=== PATIENT | female | born 1995 | race Caucasian/White ===

== ENCOUNTER 2022-07-30 21:43 | Inpatient (IN) | payer OTHER, SELFPAY ==
--- NOTE | 2022-07-30 21:43 | LDADM ---
This patient, Sofia Suarez, was admitted to Labor/Delivery/Recovery 106 on 07/30/22 at 21:43. Plans for labor, pain management and were discussed with patient. Patient/family oriented to hospital policies and general routines including ID bracelet, bed and alarms, visiting hours, pain management, procedures, bathroom and other care routines, personal items, smoking policy, room service/diet and guest tray routines, infant security routines, and visiting hours. Patient/Family are encouraged to report perceived risks to care and to ask questions if they do not understand what they are told or what they should do. See OBIX for further documentation.
[2022-07-30 23:05] VITALS: RESP 16; TEMP 36.8
[2022-07-30 23:24] VITALS: BMI 28.2
[2022-07-30] MEDS: LACTATED RINGERS 1,000 ML 125 ML IV CONT ×2 (23:25→23:47)
[2022-07-30] MEDS: fentaNYL CITRATE INJ (*CRX) 100 MCG/2 ML VIAL 50 MCG IV PUSH (23:31)
[2022-07-30 23:33] LABS: Basophils Percent Auto 0.3 % (0.2-1.2); Eosinophils Percent Auto 0.2 % (0-4.4); Hematocrit 37.4 % (37.0-47.0); Hemoglobin 12.4 g/dL (12.0-15.0); Immature Granulocyte Absolute 0.04 K/mm3 (0.00-0.031); Immature Granulocyte Percent A 0.4 % (0-0.5); Lymphocytes Absolute Auto 3.22 K/mm3 (0.9-3.2); Lymphocytes Percent Auto 29.9 % (18.3-44.2); Mean Corpuscular HGB Conc 33.2 g/dl (32-36); Mean Corpuscular Hemoglobin 29.8 pg (26-34); Mean Corpuscular Volume 89.9 fl (80-100); Mean Platelet Volume 10.8 fl (7.4-10.4); Monocytes Absolute Auto 0.7 K/mm3 (0.1-0.6); Monocytes Percent Auto 6.8 % (2.6-8.5); Neutrophils Absolute Auto 6.7 K/mm3 (1.3-6.7); Neutrophils Percent Auto 62.4 % (45.5-73.1); Platelet Count Result 241 k/mm3 (150-375); Red Blood Count 4.16 M/mm3 (4.2-5.4); White Blood Count 10.8 K/mm3 (4.5-10.0)
[2022-07-30 23:50] VITALS: PULSE 80; O2SAT 97
--- NOTE | 2022-07-30 23:51 | P.PNAN_ITS ---
Anes - Eval Pre Procedure Procedure: Labor epidural Date/Time: 07/30/22 23:51 Surgeon: Taylor Preop Diagnosis: Abd pain with contractions Pre Op Diagnosis: Contractions Patient Data Age: 26 Gender: F Height: 1.65 m Weight: 77 kg Last Vital Signs Pulse Ox 97 07/30/22 23:50 O2 Del Method Room Air 07/30/22 23:24 Allergies Allergy/AdvReac Type Severity Reaction Status Date / Time amoxicillin Allergy Hives Verified 07/30/22 23:28 Penicillins Allergy Hives Verified 07/30/22 23:28 Home Medications Medication Instructions Recorded Confirmed Type aspirin 81 mg tablet 81 mg PO DAILY 07/20/22 07/30/22 History ferrous sulfate 140 mg (45 mg 140 mg PO DAILY 07/20/22 07/30/22 History iron) tablet,extended release prenat.vits,donna,qfr-pexq-brtbt 1 tablet PO DAILY 07/20/22 07/30/22 History Laboratory Tests 07/30/22 07/30/22 23:20 23:20 WBC 10.8 K/mm3 H K/mm3 (4.5-10.0) RBC 4.16 M/mm3 L M/mm3 (4.2-5.4) Hgb 12.4 g/dL g/dL (12.0-15.0) Hct 37.4 % % (37.0-47.0) MCV 89.9 fl fl (80-100) MCH 29.8 pg pg (26-34) MCHC 33.2 g/dl g/dl (32-36) RDW 15.0 % H % (11.5-14.5) Plt Count 241 k/mm3 k/mm3 (150-375) MPV 10.8 fl H fl (7.4-10.4) Immature Gran % (Auto) 0.4 % % (0-0.5) Neut % (Auto) 62.4 % % (45.5-73.1) Lymph % (Auto) 29.9 % % (18.3-44.2) [place] % (Auto) 6.8 % % (2.6-8.5) Eos % (Auto) 0.2 % % (0-4.4) Baso % (Auto) 0.3 % % (0.2-1.2) Lymph # (Auto) 3.22 K/mm3 H K/mm3 (0.9-3.2) [place] # (Auto) 0.7 K/mm3 H K/mm3 (0.1-0.6) Eos # (Auto) 0.0 K/mm3 K/mm3 (0-0.3) Baso # (Auto) 0.0 K/mm3 K/mm3 (0.0-0.1) Abs Immat Gran (auto) 0.04 K/mm3 H K/mm3 (0.00-0.031) Absolute Neuts (auto) 6.7 K/mm3 K/mm3 (1.3-6.7) Absolute Nucleated RBC 0.0 K/mm3 K/mm3 (0.0-0.012) Nucleated RBC % 0.0 % % (0.0-0.2) RPR Pending Patient hx anesthesia problems: none Family hx anesthesia problems: none Results Review: All pre-operative results and documents have been reviewed as part of the pre- operative evaluation. [facility] Past Medical History Medical History Anxiety Overweight (BMI 25.0-29.9) and not yet delivered Social History Social History Smoking status: Former smoker Tobacco type: cigarettes and e-cigarettes/vaping Substance use: never Spiritual care concerns: No Exam Day of Procedure 07/30/22 23:51 Patient weight: overweight Airway: Mallampati scale class II
[2022-07-30 23:53] VITALS: BP 117/79; PULSE 58
[2022-07-30 23:55] VITALS: PULSE 77; O2SAT 100
[2022-07-31] VITALS (66 sets, daily range): BP systolic 93–135; BP diastolic 54–101; PULSE 60–127; RESP 16–18; TEMP 36.6–37.3; O2SAT 96–100
[2022-07-31] MEDS: OXYTOCIN 30 UNITS/NS 500 ML 30 UNITS/500 ML BAG 999 UNITS (06:03)
--- NOTE | 2022-07-31 06:14 | PM.OBPRVD ---
OB - Delivery Note Procedure Delivery date: 07/31/22 Procedure: Induction method: None Delivery monitor: External FHT and External Uterine Route of delivery: Laceration Description: Perineal - 2nd Degree Delivery repair: vicryl Specimen: No Quantitative Blood Loss (ml): 200 Anesthesia type: Epidural [place] Baby Date of : 07/31/22 Time of : 05:59 Weeks of gestation at delivery: 39 Weight (pounds): 7 Weight (ounces): 11 score five minutes: 8 score ten minutes: 9
[2022-07-31 06:27] LABS: Rapid Plasma Reagin Non-Reactive (NonReactive)
[2022-07-31] MEDS: IBUPROFEN 600 MG TABLET PO ×2 (11:28→17:51)
[2022-07-31] MEDS: MULTIVIT/MIN/PREN/FOL AC/IRON TABLET 1 TAB PO (11:28)
--- NOTE | 2022-07-31 12:23 | PC.NURSE ---
0835-Patient transferred to post room #282 via wheelchair. Support person present. Oriented to unit, room, information board, rooming in, admission packet and security measures. Patient verbalizes understanding.
--- NOTE | 2022-07-31 13:56 | PC.NURSE ---
1225 Introductions were made, then consulted with patient to assess needs related to . RN encouraged skin to skin to prepare infant for . Mother led the conversation with her?plans to feed?her and made a decision to pump and feed her infant so everyone else can feed the baby . Resources provided for inpatient and outpatient services using a resource guide and mom/baby guide. Mother voiced understanding of information and will call if there is a request for assistance. Reported to primary RN. [phone] Breast pump provided due to mother's decision to feed her pumped breast milk. Instructions given on cleaning, care, usage, that there should be no pain, pumping schedule for milk production, collection, and storage of human milk. Parents are encouraged to record pumping schedule on the feeding sheet. Patient was assessed for correct placement, flange size, to pump for comfort and nipple stretching/stimulation for adequate milk production every 3 hours (8 times in 24 hours) 1-2 times at night. Mother voiced understanding of the education shared along with mom and baby guide for additional resource information. Reported to the primary RN. [phone] - Mother called for RN to collect the human milk for feeding her . Infant was syringe fed 3mls while sucking on a gloved finger. 10mls of human milk will be stored for the next feeding and pumping session. Reported to primary RN.
[2022-07-31] MEDS: DOCUSATE SODIUM 100 MG CAPSULE PO (17:51)
[2022-08-01 04:45] VITALS: BP 112/66; PULSE 58; RESP 18; TEMP 36.7; O2SAT 96
[2022-08-01 06:20] LABS: Hematocrit 32.2 % (37.0-47.0); Hemoglobin 10.5 g/dL (12.0-15.0)
--- NOTE | 2022-08-01 07:03 | P.PNOB_ITS ---
OB - PN: Subj Subjective Date/time seen: 08/01/22 07:03 Patient comments: no complaints and pain well controlled baby status: doing well and nursing well [place] feeding status: exclusively breast feeding OB - PN: Obj Data Labs CBC & Chem 7: 08/01/22 05:36 Labs: Laboratory Results - last 24 hr 08/01/22 05:36 Hgb 10.5 L Hct 32.2 L OB - PN A/P Assessment and Plan (1) , delivered: Code(s): O80 - Encounter for full-term uncomplicated delivery Status: Acute Plan day: 1 Plan: routine care and discharge home Comments: doing very well. dc instructions given. Time Spent With Patient Time: Total time spent is greater than 50% in coordination of care (as documented) at patient's floor/unit and/or counseling patient: Time with patient: less than 15 minutes Exam Narrative: NAD abdomen soft, nontender, fundus firm below the umbilicus Extremities nontender, 1+ edema
--- NOTE | 2022-08-01 07:08 | P.DS_ITS ---
DS: Admitting Diagnosis Discharge Date 08/01/22 Admitting Diagnosis labor at term DS: Discharge Diagnosis Discharge Diagnosis (1) , delivered: Code(s): O80 - Encounter for full-term uncomplicated delivery Status: Acute OB - DS: Summary Hospital Course Hospital Course: Sofia was admitted in labor at term. She proceeded to have an uncomplicated vaginal delivery and course. OB Procedures : Ultrasound OB Procedures Intrapartum: Spontaneous Vag Delivery OB Procedures: : None Peripartum Data Delivery Method: Natural Vaginal complications: none Status at Discharge Functional status at discharge: independent ambulation Time Spent with Patient Time attestation: Total time spent providing and/or coordinating discharge services: Exam Narrative: NAD abdomen soft, appropriately tender Ext non tender, 1+ edema DS: Data Data Completed and Pending Labs on day of discharge: Labs from last 24 hours 08/01/22 05:36 Hgb 10.5 L Hct 32.2 L Discharge Plan Discharge Attending physician on discharge: Argenis Vazquez Discharging Clinician: Argenis Vazquez Anticipated Discharge Date/Time: 08/01/22 07:06 Patient Disposition: Home, Self-Care Activity: pelvic rest Diet: regular Patient Instructions: Antibiotic Form Stand Alone Forms: General Discharge Information Follow-up/Referrals: Argenis Vazquez MD [Physician] - 4 Weeks Discharge Medications: Continued #2 Tablet 1 tablet PO DAILY ferrous sulfate 140 mg (45 mg iron) Tablet Extended Release 140 mg PO DAILY Discontinued Adult Low Dose Aspirin 81 mg Tablet 81 mg PO DAILY Date of admission: 07/30/22 21:43 Primary Care Provider: PHYSICIAN,INNOVATION MANAGER Admitting Provider: Argenis Vazquez Attending physician on admission: Argenis Vazquez Condition: Stable
[2022-08-01 08:20] VITALS: BP 118/75; PULSE 76; RESP 16; TEMP 36.8; O2SAT 100
--- NOTE | 2022-08-01 08:37 | WPDANLDPN2 ---
Anes-Prog Note L&D Date/Time: 08/01/22 08:30 Comfortable throughout: labor and delivery Neuraxial method: epidural Epidural/Spinal procedure site: clean & non-tender Neuro status: Neuro function grossly intact. Cardiovascular status: normal Respiratory status: normal Airway patency: baseline Mental status: baseline Post-Op hydration status: normal Vital Signs: Last Vital Signs Temp 98.0 F 08/01/22 04:45 Pulse 58 L 08/01/22 04:45 Resp 18 08/01/22 04:45 BP 112/66 08/01/22 04:45 Pulse Ox 96 08/01/22 04:45 O2 Del Method Room Air 07/31/22 19:30 Pain score (VAS): 0 Post-procedural complaints: none Patient feedback: Patient satisfied with anesthetic care.
--- NOTE | 2022-08-01 11:41 | PC.NURSE ---
[id number] Follow up consult to answer any questions the parents may have with pumping and feeding her . Reminded parents to use good handwashing technique to prevent infection. Mother is feeding appropriately for growth of and understands stimulating infant to eat if needed. Infant has had adequate feedings in the last 24 hours meets the outcomes for weight (4.48%), output (plenty) and jaundice (appropriate for hours of age not requiring medical intervention) at this time. Mother states she is confident to continue pumping her breast to feed her at home or when to call for assistance and denies any additional assistance or education at this time. Reinforced understanding of milk production, transition of milk, signs of adequate intake, prevention/relief of engorgement, responsive after visualizing feeding cues, the different methods of stimulating to feed 2-2.5 hours after the start of the last feeding, community resources, medication information reviewed per [facility] and when to call a provider using the resource of the mom and baby guide/[facility] website. Mother voiced understanding of the education shared and has a follow up appt tomorrow 08/02 at 0800. Reported to the primary RN.
[2022-08-02 07:53] VITALS: BP 116/83; PULSE 66; RESP 20; TEMP 37.1; O2SAT 99
== END 2022-08-01 11:37 | disposition home or self-care (01) | DRG 807 ==
LOC: ANHLDR 23:42 → ANHOB2 07-31 08:40
PROVIDERS: Admitting Provider Obstetrics & Gynecology; Visit Provider Obstetrics & Gynecology
DX: O70.1 Second degree perineal laceration during delivery (principal); Z37.0 Single live birth; O76 Abnormality in fetal heart rate and rhythm complicating labor and delivery; Z3A.39 39 weeks gestation of pregnancy
CPT/HCPCS: 36415; 85014; 85018; 85025; 86592; 86850; 86900; 86901; A9270; J2590; J2795; J3010; J7120

== ENCOUNTER 2024-02-23 18:15 | Emergency (ER) | payer BC, SELFPAY ==
[2024-02-23 18:33] VITALS: BP 108/65; PULSE 95; RESP 16; TEMP 36.6; O2SAT 100
--- NOTE | 2024-02-23 18:51 | ED.DENTAL ---
HPI - Dental/Oral General Chief complaint: Dental/Oral Stated complaint: dental pain Source: patient Mode of arrival: ambulatory Limitations: no limitations History of Present Illness HPI Narrative: 28-year-old female presents to [facility] with complaints of pain to her right upper tooth and right-sided jaw pain for the past 2 days. Patient reports that she saw her dentist for right tooth pain a few weeks ago and was told that she had a ?bad tooth? and is scheduled to see an oral surgeon to have tooth removed on February 28. Patient reports that she is concerned about a current infection to her tooth patient denies fever, body aches, chills, nausea, vomiting or diarrhea. MD Complaint: tooth pain Location: Tooth # (2) Onset (ago): day(s) (2) Relieving factors: nothing Exacerbating factors: chewing Context: history of dental caries Related Data Allergies Allergy/AdvReac Type Severity Reaction Status Date / Time amoxicillin Allergy Hives Verified 01/23/23 15:06 Penicillins Allergy Hives Verified 02/23/24 18:32 Review of Systems Constitutional: Constitutional: Denies chills, Denies fatigue, Denies fever(s) and Denies weakness ENT: Denies dizziness, Denies epistaxis and Denies nasal congestion Comments: Right upper tooth pain Cardiovascular: Cardiovascular: Denies chest pain Respiratory: Respiratory: Denies cough, Denies dyspnea and Denies wheezing Gastrointestinal: Gastrointestinal: Denies diarrhea, Denies nausea and Denies vomiting Integumentary/Breasts: Skin/Breast: Denies erythema, Denies rash and Denies skin ulcer PMFSH Past Medical History Medical History Anxiety Family History Family History Father Hypertension Anxiety Depression Mother Anxiety Social History Social History Smoking status: Former smoker Tobacco type: cigarettes and e-cigarettes/vaping Alcohol intake: current Drinks per week: 1 Alcohol use details: social Substance use: never Lack of Transportation: No Lack of Food: Never True Current Housing: I Have Housing Concerned About Future Housing: No Difficulty Paying Gas/Electric Bills: No Difficulty Paying for Meds: No Currently Unemployed: No Education: High School Diploma/GED Living arrangements: with family Occupation/Education: occupation Gender identity (if verbalized by the patient): Female Sexual Orientation (if Verbalized by the Patient): Straight or Heterosexual Spiritual care concerns: No Comments At time of signature, I agree with nursing past medical, surgical, social and family history. There is no relevant family history pertinent to the presenting complaint. Exam Const: General: healthy appearing and no acute distress Nutritional Appearance: well nourished Orientation/consciousness: patient oriented x3 Limitations: no limitations HENMT: Head: normal to inspection Ears: external ears normal Mouth: Yes Normal oral and palatal mucosa present and Yes moist mucous membranes Teeth and gingiva: abnormal tooth and associated gingiva upper right Other: Partial avulsion of tooth # 2 With mild surrounding erythema and swelling. There is no obvious abscess noted. Eyes: Conjunctivae: conjunctivae normal Neck: Neck: normal visual inspection Resp: Effort & Inspection: normal respiratory effort and not labored Auscultation: clear to auscultation bilaterally, no crackles, no rales and no rhonchi Cardio: Rate: regular rate Rhythm: regular rhythm Heart sounds: no murmurs Skin: General skin exam: normal color Rashes: no rashes Neuro: General: patient oriented x3 Speech: normal speech Gait exam (Neuro): Normal gait present Psych: Affect: normal affect Attitude: cooperative Course Course Level of Care: Express Care Visit Vital Signs Vital signs: Vital
== END 2024-02-23 19:02 | disposition home or self-care (01) ==
PROVIDERS: Emergency Provider Nurse Practitioner Family; PCP Family Medicine
DX: K08.89 Other specified disorders of teeth and supporting structures (principal); F41.9 Anxiety disorder, unspecified; Z87.891 Personal history of nicotine dependence
CPT/HCPCS: 99213; G0463

== ENCOUNTER 2025-03-25 08:52 | Inpatient (IN) | payer OTHER, SELFPAY ==
[2025-03-25] VITALS (204 sets, daily range): BP systolic 74–141; BP diastolic 29–117; PULSE 61–118; RESP 18; TEMP 36.3–37.5; O2SAT 95–100; BMI 29.3
[2025-03-25 09:32] LABS: Basophils Percent Auto 0.4 % (0.2-1.2); Eosinophils Absolute Auto 0.1 K/mm3 (0-0.3); Eosinophils Percent Auto 0.9 % (0-4.4); Hematocrit 34.6 % (37.0-47.0); Immature Granulocyte Absolute 0.06 K/mm3 (0.00-0.031); Immature Granulocyte Percent A 0.6 % (0-0.5); Lymphocytes Percent Auto 31.9 % (18.3-44.2); Mean Corpuscular HGB Conc 31.8 g/dl (32-36); Mean Corpuscular Hemoglobin 28.4 pg (26-34); Mean Corpuscular Volume 89.2 fl (80-100); Mean Platelet Volume 10.4 fl (7.4-10.4); Monocytes Absolute Auto 0.6 K/mm3 (0.1-0.6); Monocytes Percent Auto 6.3 % (2.6-8.5); Neutrophils Percent Auto 59.9 % (45.5-73.1); Platelet Count Result 249 k/mm3 (150-375); Red Blood Count 3.88 M/mm3 (4.2-5.4); Red Cell Distribution Width 15.5 % (11.5-14.5)
--- NOTE | 2025-03-25 09:34 | LDADM ---
This patient, Sofia Suarez, was admitted to Labor/Delivery/Recovery 103 on 03/25/25 at 08:52. Plans for labor, pain management and were discussed with patient. Patient/family oriented to hospital policies and general routines including ID bracelet, bed and alarms, visiting hours, pain management, procedures, bathroom and other care routines, personal items, smoking policy, room service/diet and guest tray routines, infant security routines, and visiting hours. Patient/Family are encouraged to report perceived risks to care and to ask questions if they do not understand what they are told or what they should do. See OBIX for further documentation.
[2025-03-25] MEDS: LACTATED RINGERS 1,000 ML 125 ML IV CONT (09:57)
[2025-03-25] MEDS: OXYTOCIN 30 UNITS/NS 500 ML 30 UNITS/500 ML BAG IV CONT (09:57)
[2025-03-25 10:19] LABS: Syphilis IgG/IgM Antibody Non-Reactive (Nonreactive)
[2025-03-25 10:30] LABS: HIV 1/2 Ab P24 Ag Result Negative (Negative)
[2025-03-25] MEDS: fentaNYL CITRATE INJ (*CRX) 100 MCG/2 ML VIAL IV PUSH (10:50)
[2025-03-25] MEDS: miSOPROStol 25 MCG TABLET 50 MCG BUCCAL (11:02)
--- NOTE | 2025-03-25 13:52 | WPDANESEPP ---
Anes - Eval Pre Procedure Procedure: Labor epidural Date/Time: 03/25/25 13:52 Surgeon: Janeen Preop Diagnosis: Abdominal pain with contractions Pre Op Diagnosis: IOL Patient Data Age: 29 Gender: F Height: 1.65 m Weight: 80 kg Last Vital Signs Temp 97.4 F L 03/25/25 13:39 Pulse 82 03/25/25 13:45 BP 114/68 03/25/25 13:45 Pulse Ox 99 03/25/25 12:37 O2 Del Method Room Air 03/25/25 09:33 Allergies Allergy/AdvReac Type Severity Reaction Status Date / Time amoxicillin Allergy Hives Verified 03/25/25 09:34 Penicillins Allergy Hives Verified 03/25/25 09:34 Home Medications ?Medication ?Instructions ?Recorded ?Confirmed ?Type nitrofurantoin 100 mg PO DAILY 02/27/25 03/25/25 History monohydrate/macrocrystals 100 mg capsule (Macrobid) vit no.95-ferrous 1 tablet PO DAILY 02/27/25 03/25/25 History fumarate 28 mg-folic acid 800 mcg tablet () Laboratory Tests 03/25/25 09:19 WBC 10.0 K/mm3 (4.5-10.0) RBC 3.88 L M/mm3 (4.2-5.4) Hgb 11.0 L g/dL (12.0-15.0) Hct 34.6 L % (37.0-47.0) MCV 89.2 fl (80-100) MCH 28.4 pg (26-34) MCHC 31.8 L g/dl (32-36) RDW 15.5 H % (11.5-14.5) Plt Count 249 k/mm3 (150-375) MPV 10.4 fl (7.4-10.4) Immature Gran % (Auto) 0.6 H % (0-0.5) Neut % (Auto) 59.9 % (45.5-73.1) Lymph % (Auto) 31.9 % (18.3-44.2) [place] % (Auto) 6.3 % (2.6-8.5) Eos % (Auto) 0.9 % (0-4.4) Baso % (Auto) 0.4 % (0.2-1.2) Lymph # (Auto) 3.20 K/mm3 (0.9-3.2) [place] # (Auto) 0.6 K/mm3 (0.1-0.6) Eos # (Auto) 0.1 K/mm3 (0-0.3) Baso # (Auto) 0.0 K/mm3 (0.0-0.1) Abs Immat Gran (auto) 0.06 H K/mm3 (0.00-0.031) Absolute Neuts (auto) 6.0 K/mm3 (1.3-6.7) Absolute Nucleated RBC 0.000 K/mm3 (0.0-0.012) Nucleated RBC % 0.0 % (0.0-0.2) Syphilis IgG/IgM Ab Non-reactive (Nonreactive) HIV 1&2 Ab/P24 Ag 4thGn Negative (Negative) Blood Type A Positive Antibody Screen Negative : gestational age HCG: positive Patient hx anesthesia problems: none Family hx anesthesia problems: none Results Review: All pre-operative results and documents have been reviewed as part of the pre-operative evaluation. [facility] Past Medical History Medical History UTI (urinary tract infection) Overweight (BMI 25.0-29.9) and not yet delivered Anxiety Family History Family History Father Hypertension Anxiety Depression Mother Anxiety Social History Social History Smoking status: Former smoker Tobacco type: e-cigarettes/vaping Second hand tobacco smoke exposure: No Alcohol intake: current Drinks per week: 1 Alcohol use details: social Substance use: never Do You Feel Safe in your Home?: Yes Lack of Transportation: No Lack of Food: Never True Current Housing: I Have Housing Concerned About Future Housing: No Difficulty Paying Gas/Electric Bills: No Difficulty Paying for Meds: No Currently Unemployed: No Education: High School Diploma/GED Difficulty w/ Childcare or Family Care: No Living arrangements: with family Occupation/Education: occupation Gender identity (if verbalized by the patient): Female Sexual Orientation (if Verbalized by the Patient): Straight or Heterosexual Spiritual care concerns: No Exam Day of Procedure 03/25/25 13:52 Patient weight: overweight
--- NOTE | 2025-03-25 17:42 | WPDOBADMIT ---
Obstetrics - Admit Note Admission Note: record reviewed. No pertinent additions to the history and/or any subsequent changes in the physical findings that are not consistent with the expected course of the were found. Additions to the history and/or subsequent changes in the physical findings follow. IOL SVE /-2 AROM clear fluid
--- NOTE | 2025-03-25 19:00 | S_PTH ---
PATIENT: Sofia Suarez LOC: ANH[facility]2 U#:[id number] AGE/SX: 29/F ROOM: 285 RE03/25/[address]: Manuel Childers MD : 1995 BED: 00 DIS: 03/26/2025 SPEC #: [id number] RECD: 03/26/25 08:57 STATUS: CHERIE REWilliam #: [id number] ANGELINA: 03/25/25 19:[address]: Mechelle Cruz DEPT: [facility] Surgical RECD BY: Lory Lopez ENTERED: 03/26/25 08:57 SP TYPE: Surgical OTHR DR: MD Dejan García MD Tissues: A - Placenta Procedures: Hematoxylin and Eosin Stain Gross and Microscopic Level 5
--- NOTE | 2025-03-25 19:11 | P.PCNOB_ITS ---
OB - Vaginal Delivery Note Procedure Delivery date: 03/25/25 Induction method: AROM and Per Pitocin Protocol Delivery monitor: External FHT and External Uterine Route of delivery: Episiotomy description: None Laceration Description: Perineal - 1st Degree Delivery repair: vicryl Specimen: Yes Quantitative Blood Loss (ml): 250 Anesthesia type: Epidural Disposition: Floor Narrative: chin delivered and turtled back in, shoulder dystocia noted and bharat done, internal and external rotation did not relieve the anterior shoulder, was able to reach the posterior arm and gently delivered.channel supervisor at for evalution Baby Date of : 03/25/25 Time of : 18:55 Gestational Age by Date: 39 Infant gender: Female presentation: vertex position: Left Occiput Anterior Placenta delivery description: Manual Removal (large placenta) Cord Vessel Description: 3 Vessels
[2025-03-25] MEDS: OXYTOCIN 30 UNITS/NS 500 ML 30 UNITS/500 ML BAG 125 UNITS IV CONT (19:33)
[2025-03-25] MEDS: WITCH HAZEL 40 PADS 1 PAD TOPICAL (21:37)
[2025-03-25] MEDS: BENZOCAINE 20% AER SPR (*SP) 56 GM CAN 1 SPRAY TOPICAL (21:37)
[2025-03-25] MEDS: IBUPROFEN 600 MG TABLET PO (22:00)
[2025-03-25] MEDS: ACETAMINOPHEN 325 MG TABLET 650 MG PO (22:00)
[2025-03-26 00:15] VITALS: BP 107/68; PULSE 72; RESP 18; TEMP 36.6; O2SAT 98
[2025-03-26 05:11] LABS: Hematocrit 30.6 % (37.0-47.0); Hemoglobin 9.7 g/dL (12.0-15.0)
--- NOTE | 2025-03-26 05:45 | PM.OBPNVD ---
OB - PN: Subj Subjective Date/time seen: 03/26/25 05:45 Interval history: pp day 1 doing well pt desires d/c home OB - PN: Obj Data Labs 03/26/25 04:20 Labs: Laboratory Results - last 24 hr 03/25/25 03/26/25 09:19 04:20 WBC 10.0 RBC 3.88 L Hgb 11.0 L 9.7 L Hct 34.6 L 30.6 L MCV 89.2 MCH 28.4 MCHC 31.8 L RDW 15.5 H Plt Count 249 MPV 10.4 Immature Gran % (Auto) 0.6 H Neut % (Auto) 59.9 Lymph % (Auto) 31.9 [place] % (Auto) 6.3 Eos % (Auto) 0.9 Baso % (Auto) 0.4 Lymph # (Auto) 3.20 [place] # (Auto) 0.6 Eos # (Auto) 0.1 Baso # (Auto) 0.0 Abs Immat Gran (auto) 0.06 H Absolute Neuts (auto) 6.0 Absolute Nucleated RBC 0.000 Nucleated RBC % 0.0 Syphilis IgG/IgM Ab Non-reactive HIV 1&2 Ab/P24 Ag 4thGn Negative Blood Type A Positive Antibody Screen Negative OB - PN A/P Plan day: 1 Plan: routine care and discharge home Time Spent With Patient Time: Total time spent is greater than 50% in coordination of care (as documented) at patient's floor/unit and/or counseling patient: Review of Systems Review of Systems: All systems reviewed & are unremarkable except as noted in HPI and below Exam Const: General: cooperative and healthy appearing Chest: Chest palpation & inspection: normal inspection of the chest Resp: Effort & Inspection: normal respiratory effort Cardio: Rate: regular rate Back/Spine/Pelvis: Back: no CVA tenderness Skin: General skin exam: normal color
--- NOTE | 2025-03-26 05:47 | P.DS_ITS ---
DS: Admitting Diagnosis Discharge Date 03/26/25 Admitting Diagnosis IOL DS: Discharge Diagnosis Discharge Diagnosis (1) Vaginal delivery: Code(s): O80 - Encounter for full-term uncomplicated delivery Status: Acute OB - DS: Summary OB Procedures : None OB Procedures Intrapartum: Spontaneous Vag Delivery OB Procedures: : None Peripartum Data Laceration Description: Perineal - 1st Degree Episiotomy description: None Time Spent with Patient Time attestation: Total time spent providing and/or coordinating discharge services: DS: Data Data Completed and Pending Labs on day of discharge: Labs from last 24 hours 03/26/25 03/25/25 04:20 09:19 WBC 10.0 RBC 3.88 L Hgb 9.7 L 11.0 L Hct 30.6 L 34.6 L MCV 89.2 MCH 28.4 MCHC 31.8 L RDW 15.5 H Plt Count 249 MPV 10.4 Immature Gran % (Auto) 0.6 H Neut % (Auto) 59.9 Lymph % (Auto) 31.9 [place] % (Auto) 6.3 Eos % (Auto) 0.9 Baso % (Auto) 0.4 Lymph # (Auto) 3.20 [place] # (Auto) 0.6 Eos # (Auto) 0.1 Baso # (Auto) 0.0 Abs Immat Gran (auto) 0.06 H Absolute Neuts (auto) 6.0 Absolute Nucleated RBC 0.000 Nucleated RBC % 0.0 Syphilis IgG/IgM Ab Non-reactive HIV 1&2 Ab/P24 Ag 4thGn Negative Blood Type A Positive Antibody Screen Negative Discharge Plan Discharge Attending physician on discharge: Manuel Childers Discharging Clinician: Mechelle Cruz Patient Disposition: Home Activity: pelvic rest Diet: regular Patient Instructions: Antibiotic Form Patient Language: Kazakh Stand Alone Forms: General Discharge Information Follow-up/Referrals: Mechelle Cruz CNM [Certified Nurse Durability Technician] - 4 Weeks Discharge Medications: No Action PNV cmb#95-ferrous fumarate-FA [] 28 mg iron- 800 mcg tablet 1 tablet PO DAILY nitrofurantoin monohyd/m-cryst [Macrobid] 100 mg capsule 100 mg PO DAILY Date of admission: 03/25/25 08:52 Primary Care Provider: Dejan Espinosa Admitting Provider: Nimesh Vernon Attending physician on admission: Mechelle Cruz Condition: Stable
[2025-03-26] MEDS: POLYSACCHARIDE IRON COMPLEX 150 MG CAPSULE PO ×2 (07:33→16:43)
[2025-03-26] MEDS: DOCUSATE SODIUM 100 MG CAPSULE PO ×2 (07:33→16:44)
[2025-03-26] MEDS: IBUPROFEN 600 MG TABLET PO ×2 (07:35→12:56)
[2025-03-26] MEDS: ACETAMINOPHEN 325 MG TABLET 650 MG PO ×2 (07:35→12:57)
[2025-03-26 08:35] VITALS: BP 108/66; PULSE 70; RESP 16; TEMP 36.5; O2SAT 98
[2025-03-26 12:40] VITALS: BP 117/74; PULSE 74; RESP 16; TEMP 36.9; O2SAT 98
--- NOTE | 2025-03-26 14:00 | WPDANLDPN2 ---
Anes-Prog Note L&D Date/Time: 03/26/25 14:00 Comfortable throughout: labor and delivery Neuraxial method: epidural Epidural/Spinal procedure site: clean & non-tender Neuro status: Neuro function grossly intact. Cardiovascular status: normal Respiratory status: normal Airway patency: baseline Mental status: baseline Post-Op hydration status: normal Vital Signs: Last Vital Signs Temp 98.4 F 03/26/25 12:40 Pulse 74 03/26/25 12:40 Resp 16 03/26/25 12:40 BP 117/74 03/26/25 12:40 Pulse Ox 98 03/26/25 12:40 O2 Del Method Room Air 03/25/25 09:33 Pain score (VAS): 0/10 I/O: Intake & Output 03/25/25 03/26/25 03/26/25 23:59 07:59 15:59 Output Total 350 Balance -350 Post-procedural complaints: none Patient feedback: Patient satisfied with anesthetic care.
[2025-03-26 16:17] VITALS: BP 101/72; PULSE 70; RESP 18; TEMP 36.7; O2SAT 98
[2025-03-26 20:06] VITALS: BP 110/76; PULSE 69; RESP 19; TEMP 36.4; O2SAT 98
[2025-03-28 13:40] VITALS: BP 127/74; PULSE 66; RESP 16; TEMP 36.6; O2SAT 99
== END 2025-03-26 21:43 | disposition home or self-care (01) | DRG 807 ==
LOC: ANHOB2 03-26 05:47 → ANHLDR 03-27 10:57 → ANHOB2 03-27 10:57
PROVIDERS: Advanced Practice Midwife; Admitting Provider Obstetrics & Gynecology; PCP Family Medicine; Visit Provider Obstetrics & Gynecology
DX: O70.0 First degree perineal laceration during delivery (principal); Z37.0 Single live birth; O66.0 Obstructed labor due to shoulder dystocia; Z3A.39 39 weeks gestation of pregnancy
CPT/HCPCS: 36415; 85014; 85018; 85025; 86593; 86703; 86850; 86900; 86901; 88307; A9270; G0432; J2590; J2795; J3010; J7120